=== PATIENT | female | born 1945 | race Caucasian/White ===

== ENCOUNTER 2024-12-11 13:54 | Outpatient (CLI) | payer MEDICARE, SELFPAY | END 2024-12-11 13:55 | disposition home or self-care (01) | PROVIDERS: PCP Family Medicine; Visit Provider Internal Medicine | DX: R53.1 Weakness (principal); R50.9 Fever, unspecified | CPT/HCPCS: A0425; A0427 ==

== ENCOUNTER 2024-12-11 14:45 | Inpatient (IN) | payer MEDICARE, SELFPAY ==
[2024-12-11] VITALS (8 sets, daily range): BP systolic 131–162; BP diastolic 68–95; PULSE 83–98; RESP 16–20; TEMP 36.8–38; O2SAT 90–97; BMI 23.4; BMI 18.8
--- OUTSIDE RECORDS SUMMARY | 2024-12-11 14:47 | XMS_ITS | Clinical Summary ---
Author Organization [facility] Address [address] [place] [id number] Care Team Providers Care Lath Hand Name Role Phone Erna Cohen MD Primary Care Provide r Allergies No known active allergies Medications nitrofurantoin macrocrystals/m onohydrate 100 mg capsuleIndicati ons:Complicated UTI (urinary tract infection) Take 1 Capsule (100 mg) by mouth two times daily for 7 days. 14 Capsule 12/08/2024 Active Active Problems Problem Noted Date Diagnosed Date Female bladder prolapse 01/14/2023 Uterine prolapse 05/23/2021 Mild hypercholesterolemia 05/23/2021 Encounters Date Type Department Care Team Description 12/11/2024 Nurse Triage [facility] [address] [place] [address] Erna Cohen MD Infection 12/09/2024 Telephone [facility] [address] [place] [address] Ivonne Yeung PA Results 12/08/2024 11:30 AM CDT Office Visit [facility] [address] [place] [address] Ivonne Yeung PA UTI 12/08/2024 Travel from Last 3 Months Social History Tobacco Use Types Packs/Day Years Used Date Smoking Tobacco: Never Smokeless Tobacco: Never Tobacco Cessation:Counseling Given: Yes Alcohol Use Standard Drinks/Week Comments Yes 0 (1 standard drink = 0.6 oz pur e alcohol) janette CHASE-2 Answer Date Recorded PHQ-2 TOTAL SCORE 0 01/13/2023 Social Connections Answer Date Recorded Do you often feel lonely or isolated from those around you? 0 02/08/2024 Financial Resource Strain Answer Date R ecorded Difficulty of Paying Living Expenses 3 02/08/2024 Difficulty of Paying Living Expenses Not on file 02/08/2024 Food Insecurity Answer Date Recorded Do you worry your food will run out before you are able to buy more? 1 02/08/2024 Transportation Needs Answer Date Record ed Does lack of transportation keep you from medica l appointments? 1 02/08/2024 Does lack of transportation keep you from work, meetings or getting things that you need? 1 02/08/2024 Housing Stability Answer Date Recorded What is your housing situation today? 1 02/08/2024 Utilities Answer Date Recorded Do you have trouble paying f or utilities (for example, heat, electricity, water, phone)? 1 02/08/2024 Comments No Sex and Gender Information Value Date Recorded Sex Assigned at Not on file Legal Sex Female 6:19 AM AUTHORIZATION COORDINATOR Gender Identity Not on file Sexual Orientation Not on file Obstetrics History Last Filed Vital Signs Vital Sign Reading Time Taken Comments Blood Pressure 125/82 12/08/2024 11:38 AM CDT Pulse 93 12/08/2024 11:38 AM CDT Temperature 36.7 C (98.1 F) 12/08/2024 11:38 AM CDT Respiratory Rate - - Oxygen Saturation 97% 12/08/2024 11:38 AM CDT Inhaled Oxygen Concentration - - Weight 50.1 kg (110 lb 8 oz) 12/08/2024 11:38 AM CDT Height 161.3 cm (5' 3.5) 01/13/2023 8:22 AM CDT Body Mass Index 19.27 01/13/2023 8:22 AM CDT Plan of Treatment Upcoming Encounters Date Type Department Care Team (Late st Contact Info) Description 12/20/2024 10:30 AM CDT Ancillary Procedure [facility] [address] [place] [address] 12/20/2024 11:20 AM CDT Office Visit [facility] [address] [place] [address] Erna Cohen MD [address] [place] [address] Health Maintenance Due Date Last Done Comments Tdap 1956 Hepatitis C screening for ag e 18-79 1964 Tetanus booster 1966 Pneumococcal series for age 50+ (1 of 1 - PCV) 1996 Zoster (shingles) series for age 50+ (1 of 2) 1996 RSV vaccine for adults or (1 - 1-dose 75+ series) 2021 BMI (ht and wt on same day) for age 18+ 01/14/2024 01/13/2023, 09/22/2019, 12/16/2018, Additional history exists Depression screening for age 12+ 01/14/2024 01/13/2023, 01/13/2023, 09/22/2019, Additional history exists Medicare Wellness for age 65+ 01/14/2024 01/13/2023, 09/22/2019 COVID-19 vaccine series ( - season) 2024 Influenza Vaccine (Season Ended) 2025 DEXA/DXA scan for age 65+ Completed 01/13/2023 Procedures Procedure Name Priority Date/Time Associated Diagnosis Comments COMP METABOLIC PANEL Routine 12/08/2024 12:15 PM CDT Abdominal pain, RUQ (right upper quadrant) CBC WITH AUTO DIFFERENTIAL Routine 12/08/2024 12:15 PM CDT Abdominal pain, RUQ (right upper quadrant) SEDIMENTATION RATE Routine 12/08/2024 12 :15 PM CDT Abdominal pain, RUQ (right upper quadrant) C-REACTIVE PROTEIN Routine 12/08/2024 12 :15 PM CDT Abdominal pain, RUQ (right upper quadrant) TRICHOMONAS, ROSA, AND BACTERIAL VAGINOSIS BY HUYEN Routine 12/08/2024 11:52 AM CDT Lower urinary tract symptoms (LUTS) URINALYSIS MACROSCOPIC - [facility] ONLY POC DIP ([facility]) Routine 12/08/2024 11:47 AM CDT Lower urinary tract symptoms (LUTS) URINALYSIS MICROSCOPIC Routine 11:46 AM CDT Lower urinary tract symptoms (LUTS) URINE CULTURE Routine 12/08/2024 11:46 AM CDT Lower urinary tract symptoms (LUTS) XR DXA BONE DENSITY 2 SITES AXIAL Routine 01/13/2023 2:09 PM CDT Menopause from Last 3 Months or Most Recently Relevant to Health Maintenance Results * SEDIMENTATION RATE (12/08/2024 12:15 PM CDT) SED RATE BY MODIFIED FABIANA 29 < OR = 30 mm/h [facility] Blood BLOOD SPECIMEN / Unknown 12/08/2024 12:15 PM CDT 12/08/2024 12:15 PM CDT Narrative [facility] - 12/09/2024 5:43 AM CDT FASTING:NO FASTING: NO us Ivonne HOLLINGSWORTH HEMATOLOGY Final Result [facility] [address] [place] [address], [facility] [address] [place] [address] * (ABNORMAL) C-REACTIVE PROTEIN (12/08/2024 12:15 PM CDT) C-REACTIVE PROTEIN 102.0(H) <8.0 mg/L [facility] Blood BLOOD SPECIMEN / Unknown 12/08/2024 12:15 PM CDT 12/08/2024 12:15 PM CDT Narrative [facility] - 12/09/2024 11:06 AM CDT FASTING:NO FASTING: NO us Ivonne Marlene Pendleton PA CHEMISTRY Final Result [facility] [address] [place] [address], [facility] [address] [place] [address] * (ABNORMAL) CBC AND DIFFERENTIAL (12/08/2024 12:15 PM CDT) [facility] WHITE BLOOD CELL COUNT 11.6(H) 3.8 - 10.8 Thousand/u L [facility] RED BLOOD CELL COUNT 3.84 3.80 - 5.10 Million/uL [facility] HEMOGLOBIN 12.9 11.7 - 15.5 g/dL [facility] HEMATOCRIT 38.2 35.0 - 45.0 % [facility] MCV 99.5 80.0 - 100.0 fL [facility] MCH 33.6(H) 27.0 - 33.0 pg [facility] MCHC 33.8 32.0 - 36.0 g/dL [facility] Comment: For adults, a slight decrease in the calculated MCHC value (in the range of 30 to 32 g/dL) is most likely not clinically significant; however, it should be interpreted with caution in correlation with other red cell parameters and the patient's clinical condition. RDW 12.8 11.0 - 15.0 % [facility] PLATELET COUNT 229 140 - 400 Thousand/u L [facility] MPV 9.9 7.5 - 12.5 fL [facility] ABSOLUTE NEUTROPHILS 9,709(H) 1,500 - 7,800 cells/uL [facility] ABSOLUTE LYMPHOCYTES 812(L) 850 - 3,900 cells/uL [facility] ABSOLUTE MONOCYTES 1,067(H) 200 - 950 cells/uL [facility] ABSOLUTE EOSINOPHILS 0(L) 15 - 500 cells/uL [facility] ABSOLUTE BASOPHILS 12 0 - 200 cells/uL [facility] NEUTROPHILS 83.7 % [facility] LYMPHOCYTES 7.0 % [facility] MONOCYTES 9.2 % [facility] EOSINOPHILS 0.0 % [facility] BASOPHILS 0.1 % [facility] Blood BLOOD SPECIMEN / Unknown 12/08/2024 12:15 PM CDT 12/08/2024 12:15 PM CDT Narrative [facility] - 12/09/2024 3:38 AM CDT FASTING:NO FASTING: NO Ivonne HOLLINGSWORTH HEMATOLOGY Final Result [employer] [facility] [address] [place] [address], [facility] [address] [place] [address] * (ABNORMAL) COMP METABOLIC PANEL (12/08/2024 12:15 PM CDT) Pathologist [facility] GLUCOSE 135 65 - 139 mg/dL [facility] Comment: Non-fasting reference interval UREA NITROGEN (BUN) 11 7 - 25 mg/dL [facility] CREATININE 0.71 0.60 - 1.00 mg/dL [facility] EGFR 87 > OR = 60 mL/min/1. 73m2 [facility] BUN/CREATININE RATIO SEE NOTE: 6 - 22 (calc) [facility] Comment: Not Reported: BUN and Creatinine are within reference range. SODIUM 136 135 - 146 mmol/L [facility] POTASSIUM 4.3 3.5 - 5.3 mmol/L [facility] CHLORIDE 97(L) 98 - 110 mmol/L [facility] CARBON DIOXIDE 29 20 - 32 mmol/L [facility] CALCIUM 9.4 8.6 - 10.4 mg/dL [facility] PROTEIN, TOTAL 6.8 6.1 - 8.1 g/dL [facility] ALBUMIN 4.4 3.6 - 5.1 g/dL [facility] GLOBULIN 2.4 1.9 - 3.7 g/dL (calc) [facility] ALBUMIN/GLOBULIN RATIO 1.8 1.0 - 2.5 (calc) [facility] BILIRUBIN, TOTAL 0.9 0.2 - 1.2 mg/dL [facility] ALKALINE PHOSPHATASE 67 37 - 153 U/L [facility] AST 24 10 - 35 U/L [facility] ALT 16 6 - 29 U/L [facility] Blood BLOOD SPECIMEN / Unknown 12/08/2024 12:15 PM CDT 12/08/2024 12:15 PM CDT Narrative [facility] - 12/09/2024 4:06 AM CDT FASTING:NO FASTING: NO us Ivonne HOLLINGSWORTH CHEMISTRY Final Result [employer] [facility] [address] [place] [address], [address] [address] * TRICHOMONAS, ROSA, AND BACTERIAL VAGINOSIS BY HUYEN (12/08/2024 11:52 AM CDT) ROSA SPECIES Negative Negative 5 2:04 PM CDT [facility] ROSA GLABRATA Negative Negative 12/09/2024 2:04 PM CDT [facility] TRICHOMONAS VVA Negative Negative 2:04 PM CDT [facility] BACTERIAL VAGINOSIS Negative Negative 12/09/2024 2:04 PM CDT [facility] Other VAGINAL SWAB / Unknown Non-Blood / Unknown 12/08/2024 11:52 AM CDT 12/08/2024 12:50 PM CDT Ivonne HOLLINGSWORTH MICROBIOLOGY Final Result [facility] [address] [place] [address], * (ABNORMAL) POCT Urinalysis Dipstick Only [[id number]] (12/08/2024 11:47 AM CDT) PH 6.0 5.0 - 8.0 [facility] SPECIFIC GRAVITY 1.025 1.001 - 1.035 [facility] GLUCOSE NEGATIVE NEGATIVE [facility] BILIRUBIN NEGATIVE NEGATIVE [facility] KETONES TRACE(A) NEGATIVE [facility] OCCULT BLOOD 3+(A) NEGATIVE [facility] PROTEIN 3+(A) NEGATIVE [facility] NITRITE POSITIVE(A) NEGATIVE [facility] LEUKOCYTE ESTERASE 3+(A) NEGATIVE [facility] Urine URINE SPECIMEN / Unknown 12/08/2024 11:47 AM CDT 12/08/2024 11:47 AM CDT Ivonne HOLLINGSWORTH URINE Final Result Performing Organization Address [facility]/ZIP Co de Phone Number [facility] [address] [place] [address], [facility] [address] [place] [address] * (ABNORMAL) URINALYSIS MICROSCOPIC [66221.1] - routine (12/08/2024 11:46 AM CDT) RBC >100(A) 0-2, None Seen /HPF 12/08/2024 11:30 PM CDT [facility] WBC >100(A) 0-2, 3-5, None Seen /HPF 12/08/2024 11:30 PM CDT [facility] BACTERIA Many(A) None Seen, Rare, Few Bacteria/ HPF 12/08/2024 11:30 PM CDT [facility] EPITHELIAL CELLS None Seen None Seen, Few Epi/HPF 12/08/2024 11:30 PM CDT [facility] HYALINE CASTS 0-2 0-2, 3-5 /LPF 12/08/2024 11:30 PM CDT [facility] Urine URINE SPECIMEN / Unknown Non-Blood / Unknown 12/08/2024 11:46 AM CDT 12/08/2024 11:46 AM CDT Ivonne HOLLINGSWORTH URINE Final Result [facility] [address] [place] [address], [place] * (ABNORMAL) URINE CULTURE [20781.2] (12/08/2024 11:46 AM CDT) CULTURE RESULT(A) 12/11/2024 7:15 AM CDT [facility] CULTURE >100,000 CFU/mL Escherichia coli 12/11/2024 7:15 AM CDT [facility] Urine URINE SPECIMEN / Unknown Non-Blood / Unknown 12/08/2024 11:46 AM CDT 12/08/2024 11:46 AM CDT Narrative Organism Antibiotic Method Susceptibility Escherichia coli TRIMETHOPRIM/SULF >=16/304: R Escherichia coli AMPICILLIN >=32: R Escherichia coli CEFAZOLIN >=32: R Escherichia coli CEFAZOLIN-UC >=32: R Comment:Cefazolin-UC interpretations are for therapy of uncomplicated UTIs due to E.coli, K.pneumoniae, or P.mirablis. Cefazolin breakpoint is used as a surrogate to predict results for the oral agents - cefdinir, cefuroxime, and cephalexin, when used for therapy of uncomplicated UTIs due to E coli, K, pneumoniae, and P. mirabilis. The FDA recommends cefadroxil susceptibility can be deduced from cefazolin. Escherichia coli GENTAMICIN <=1: S Escherichia coli CEFTRIAXONE 32: R Escherichia coli CEFTAZIDIME 8: I Escherichia coli LEVOFLOXACIN <=0.12: S Escherichia coli CIPROFLOXACIN <=0.06: S Escherichia coli PIPERACILLIN/TAZO <=4: S Escherichia coli AMPICILLIN/SULBACTAM >=32: R Escherichia coli CEFEPIME <=0.12: S Escherichia coli MEROPENEM <=0.25: S Escherichia coli NITROFURANTOIN 32: S Ivonne HOLLINGSWORTH MICROBIOLOGY Final Result [facility] [address] [place] [address], * (ABNORMAL) XR DXA BONE DENSITY 2 SITES AXIAL [23084.1] (01/13/2023 2:09 PM CDT) Anatomical Region Laterality Modality Spine, HIPS, HIPL, HIPR Other Impressions 01/23/2023 4:45 PM CDT Osteopenia. RECOMMENDATIONS: The National Osteoporosis Foundation recommends pharmacologic treatment for patients with T-scores of -2.5 or less, patients with prior history of fragility fractures, or patients with 10-year probability of greater than 3% at hips or greater than 20% of suffering major osteoporotic fractures. Recommend continued optimization of calcium and vitamin D intake through dietary means and/or supplementation and regular exercise. Repeat scan recommended in 3-5 years. Naomy Swanson PA-C [facility] 01/23/2023 Narrative 01/23/2023 4:45 PM CDT For Patients: Results are automatically released to your [facility] (PhoneTell) account once available, in compliance with federal regulations. This means that you may see your results before your provider has had a chance to review them. Please allow 2-3 business days for your provider to comment on the results. XR DXA Bone Mineral Density (BMD) EXAM LOCATION: [address] [address] PATIENT NAME: Shane Cat DATE OF : 1945 EXAM DATE: 01/13/2023 REQUESTING PROVIDER: Erna Cohen MD GENDER AT : female HEIGHT: 5' 3.5 (01/13/2023) WEIGHT: 111 lb 9.6 oz (01/13/2023) MENOPAUSAL STATUS: Postmenopausal RACE/ETHNICITY: White RISK FACTORS: Weight < 127 lbs. and White Race CURRENT MEDICATION FOR BONE LOSS: NONE INDICATION: Initial scan for screening and Post-Menopause COMPARISON DATE(S): None DXA scans are compared to prior studies for a patient only when the two (or more) studies were performed on the same scanner. It is not possible to compare data generated on one scanner to data from another because there are not standards in DXA equipment. This applies even if the two scanners are made by the same gas worker. PROCEDURE: Dual-energy x-ray absorptiometry performed with routine technique. Reporting is completed in the form of a T-score. The T-score represents the standard deviation from peak bone mass based on young healthy adult. A Z-score is used for diagnosis in premenopausal women, and for men under the age of 50. FINDINGS: RESULT LUMBAR SPINE L1 - L2 BMD: 1.138 g/cm2 T-Score: - 0.3 Z-Score: + 2.0 Change from prior: None RESULTS FEMUR Left femoral neck BMD: 0.844 g/cm2 T-Score: - 1.4 Z-Score: + 0.9 Change from prior: None Right femoral neck BMD: 0.779 g/cm2 T-Score: - 1.9 Z-Score: + 0.4 Change from prior: None Left hip BMD: 0.891 g/cm2 T-Score: - 0.9 Z-Score: + 1.2 Change from prior: None Right hip BMD: 0.867 g/cm2 T-Score: - 1.1 Z-Score: + 1.0 Change from prior: None WHO criteria: Normal: T-score at or above -1 SD Osteopenia: T-score between -1.1 and -2.4 SD Osteoporosis: T-score at or below -2.5 SD FRAX RISK CALCULATION (USED FOR OSTEOPENIA ONLY): 10-year probability of major osteoporotic fracture: 11.2%. 10-year probability of hip fracture: 3.0%. Erna Cohen MD DEXA Final Result from Last 3 Months or Most Recently Relevant to Health Maintenance Insurance [facility] MEDICARE ADVANTAGE MR Care Teams Lath Hand Relationship Specialty Start Date End Date Erna Cohen MD [address] [place] [address] PCP - General 12/12/05
[2024-12-11 15:02] LABS: Appearance Urine Slightly Cloudy (Clear); Bilirubin Urine Negative (Negative); Blood Urine 2+ (Negative); Color Urine Dark yellow (Yellow); Glucose Urine Negative (Negative); Ketones Urine 1+ (Negative); Leukocyte Esterase Urine 3+ (Negative); Nitrite Urine Positive (Negative); Protein Urine 2+ (Negative); Urobilinogen Urine 0.2 (0.2-1.0); pH Urine 6.5 (5.0-8.5)
[2024-12-11 15:15] LABS: Squamous Epithelial Cell Urine Few (None-Few); WBC Urine 50-100 (0-5)
[2024-12-11 15:16] LABS: Bacteria Urine Many
--- NOTE | 2024-12-11 16:06 | CRLHL7_ITS ---
For Patients: As a result of the 21st Century Cures Act, medical imaging exams and procedure reports are released immediately into your electronic medical record. You may view this report before your referring provider. If you have questions, please contact your health care provider. INDICATION: Right lower quadrant pain, fever, UTI. COMPARISON: None. TECHNIQUE: CT of the abdomen and pelvis with intravenous contrast. Multiplanar axial, coronal, and sagittal reformats were reconstructed. Contrast: 71 mL Isovue 370. FINDINGS: Lung bases: Mild basilar reticulation could be scarring or atelectasis. Liver: There is a 2.4 centimeter liver cyst. There are scattered subcentimeter subcapsular lesions. See series 2 image 26, 29, and 51. Gallbladder and bile ducts: The gallbladder fundus is mildly thickened and hyperenhancing. There is some focal low density in the wall. Question fundal adenomyomatosis. No bile duct dilation. Pancreas: Normal. Spleen: Normal. Adrenal glands: Normal. Kidneys: Normal left renal size and position. Normal left renal parenchymal enhancement. There is a 9 millimeter left renal cyst. No left renal mass. There is left pelviectasis and dilatation of the peripheral and central calices. The anterior to posterior renal pelvic dimension is 3.1 centimeters. The left ureter is diffusely dilated. The left urothelium appears normal on CT. Slightly low-lying transverse right kidney. Asymmetric right perinephric stranding. Focal blurring of the corticomedullary differentiation in the right mid kidney laterally. See series 2, image 63. There is moderate to severe right pelvicaliectasis with an anterior-posterior renal pelvis dimension of 4 centimeters. The right ureter is diffusely dilated. There is right urothelial thickening and enhancement. Urinary bladder: Urinary bladder prolapse. The urinary bladder is not fully visualized within the field of view. The ureterovesicular junctions are not visualized within the field of view. The bladder is mildly thickened and hyperenhancing. There is some adjacent inflammatory stranding. Pelvis: Severe pelvic prolapse. Vessels: Mild atherosclerosis. No aortic aneurysm. Mesenteric arteries and veins are patent. Bowel: No dilated or inflamed bowel. Normal appendix. Moderate stool burden. Lymph nodes: No adenopathy. Peritoneum: No ascites or free air. Abdominal wall: No bowel containing hernia. Bones: Multilevel disc and facet degeneration. No acute or healing fractures. No focal worrisome bone lesions. IMPRESSION: 1. Cystitis of the urinary bladder and right upper urinary tract infection. Area of focal pyelonephritis in the right mid kidney. No renal abscess or perinephric collection. 2. There is pelvic prolapse with prolapse of the bladder. There is associated bilateral urinary tract dilatation/obstruction. 3. Question focal adenomyomatosis at the gallbladder fundus. Recommend nonemergent ultrasound. 4. There are a few indeterminate subcapsular liver lesions that measure less than 1 centimeter. If further imaging is clinically necessary, MR abdomen without and with IV contrast could be considered. Please note that all CT scans at this facility use dose modulation, iterative reconstruction, and/or weight-based dosing when appropriate to reduce radiation dose to as low as reasonably achievable. Dictated by Nan Miller MD @ 12/11/2024 5:16:18 PM (Electronically Signed)
--- NOTE | 2024-12-11 16:20 | ED_ITS ---
HPI - General Adult General Date Seen: 12/11/24 Chief complaint: Fever Stated complaint: gillian Edwards Time Seen by Provider: 12/11/24 14:59 History of Present Illness HPI narrative: Patient is a 79-year-old woman, generally pretty healthy although she has a history of uterine prolapse. She says that last , 4 days ago, she woke up with dysuria and blood in her urine. She was seen at the [facility], day, and says that urinalysis was abnormal. A culture was obtained but she has not yet heard the results of that. She was started on Macrobid and she has been taking that twice daily since . She presents the ER on Thursday due to feeling weak and shaky today. She has had some chills, some sweats. Has not documented a fever at home. She says the dysuria and hematuria have improved. She has been having some right upper quadrant pain for it sounds like a week and half for so, and says that they did do liver labs in clinic that were normal. There is a right upper quadrant ultrasound scheduled for about a week from now. She has no history of kidney stones. She does still have her gallbladder. She has not had vomiting or diarrhea. She notes that her uterus is always prolapsed, it has been feeling more sensitive than usual. She has not had any respiratory symptoms. She does not smoke or drink. Related Data Home Medications ?Medication ?Instructions ?Recorded ?Confirmed nitrofurantoin 1 cap PO BID 12/11/24 12/11/24 monohydrate/macrocrystals 100 mg capsule Allergies Allergy/AdvReac Type Severity Reaction Status Date / Time No Known Drug Allergies Allergy Verified 12/11/24 17:50 Review of Systems Status of ROS: Reports: 10 or more systems reviewed and unremarkable except as noted in History and below Exam Narrative: Exam Narrative: Vital signs reviewed In general, alert, nontoxic woman, breathing easily. Head: Normocephalic, atraumatic. Eyes: Sclera clear. Pupils equal and reactive. ENT: Mucous membranes moist. Neck: Supple without adenopathy. Heart: Regular rate and rhythm without murmur. Lungs: Clear. No increased work of breathing, crackles or wheezes. No CVA tenderness. Abdomen: Soft, nontender to palpation. Negative Timmons sign. Pelvic: She has a prolapsed uterus which is reducible, tissue is pink and well perfused, no significant tenderness to palpation. Extremities: Well perfused, pulses intact. No significant edema. Neurologic: Alert, conversant. Speech fluent, face symmetric. Moves all extremities equally. Skin: Warm, dry well perfused. Affect: Normal. Const: Vital Signs, click to edit/add: Vital Signs - 24 hr 12/11/24 15:04 12/11/24 15:30 12/11/24 16:51 Temperature 100.4 F H Pulse Rate 86 Pulse Rate [Pulse Oximeter] 91 Respiratory Rate 16 Blood Pressure 162/95 H Blood Pressure [Ri ght Upper Arm] 152/81 H Pulse Oximetry 97 94 Oxygen Delivery Me thod Room Air 12/11/24 17:00 Temperature Pulse Rate 93 Pulse Rate [Pulse Oximeter] Respiratory Rate Blood Pressure Blood Pressure [Ri ght Upper Arm] Pulse Oximetry 97 Oxygen Delivery Me thod Course Course ED Course: A urinalysis was obtained prior to my seeing the patient. This is notable for positive nitrites, 2-5 red cells and 50-100 white blood cells. Will check to see if the [facility] culture results are available. In the meantime, an IV is placed, will give a L normal saline, at this time, she does meet sepsis criteria with fever and mild tachycardia. Blood cultures, CBC, lactate, procalcitonin and other labs are pending. Wound cultures have been drawn, will initiate antibiotics. Given that the source of this infection seems almost certainly to be urinary, we can most likely limit our antibiotics Rocephin. I am going to do imaging of her abdomen in the form of CT scan to see if she has a kidney stone, will check LFTs although I think it is relatively unlikely that this is biliary in origin. Labs are reviewed and are generally normal. She is mildly anemic with a hemo globin of 11.3, her white count is normal, very minimal left shift with 75% neutrophils. Sodium is 131, creatinine normal. LFTs are unremarkable. CRP is elevated at 14.2 but lactate and procalcitonin are normal. CT scan by my review is notable for significant obstructive uropathy and prolapse of pelvic organs. Liver cyst is seen as well. Final radiology report is also reviewed, results reviewed with the family. An ultrasound of the gallbladder was recommended, she actually has this scheduled already for next week and I have discussed with them they should keep that appointment. I was able to see the culture results from [facility], she grew out an E coli which is actually resistant to Rocephin but sensitive to cefepime so I gave her 2 g of IV cefepime after cultures were obtained. She does meet sepsis criteria with her pulse and temperature, and will be admitted to the hospital for IV antibiotics. I discussed her care with Dr. Andrade on-call for Ob Gyne, they will consult tomorrow for pessary placement and conversation around repair for her pelvic organ prolapse. Tee catheter was placed in the meantime in the ER. Aside from mild tachycardia, she has remained hemodynamically stable in the ER, does not have any other complaints at this time. Care discussed with hospitalist and accepted to their service. Vital Signs Vital signs: Initial Vital Signs Temperature 100.4 F H 12/11/24 15:04 Temperature Source Temporal Artery Scan 12/11/24 15:04 Pulse Rate 91 12/11/24 15:04 Respiratory Rate 16 12/11/24 15:04 Blood Pressure 152/81 H 12/11/24 15:04 Blood Pressure Mean 104 12/11/24 15:04 Pulse Oximetry 97 12/11/24 15:04 Oxygen Delivery Method Room Air 12/11/24 15:04 Vital Signs Temperature 100.4 F H 12/11/24 15:04 Pulse Rate 91 12/11/24 15:04 Respiratory Rate 16 12/11/24 15:04 Blood Pressure 152/81 H 12/11/24 15:04 Pulse Oximetry 97 12/11/24 15:04 Oxygen Delivery Method Room Air 12/11/24 15:04 Temperature 100.4 F H 12/11/24 15:04 Pulse Rate 93 12/11/24 17:00 Respiratory Rate 16 12/11/24 15:04 Blood Pressure 162/95 H 12/11/24 16:51 Pulse Oximetry 97 12/11/24 17:00 Oxygen Delivery Method Room Air 12/11/24 15:04 Medications Administered Medications: Discontinued Medications Generic Name Dose Route Start Last Admin Trade Name Freq PRN Reason Stop Dose Admin Sodium Chloride 1,000 mls @ 1,000 mls/hr 12/11/24 16:15 12/11/24 16:58 0.9 % Sodium Chloride 1000 Ml IV 12/11/24 17:14 1,000 mls/hr .Q1H MARTA Administration Cefepime HCl 2 gm/ Sodium 100 mls @ 200 mls/hr 12/11/24 16:40 12/11/24 17:43 Chloride IVPB 12/11/24 16:41 Infused ONCE ONE Infusion Medical Decision Making Lab Data Labs: Lab Results 12/11/24 12/11/24 12/11/24 Range/Units 14:56 16:16 16:29 WBC 6.64 (4.50-11.00) K/uL RBC 3.37 L (4.00-5.20) m/uL Hgb 11.3 L (12.0-16.0) gm/dL Hct 33.9 (33.0-51.0) % MCV 101 H (80-100) fL MCH 34 (26-34) pg MCHC 33 (32-36) gm/dL RDW Coeff of Richard 13.0 (11.5-15.5) % Plt Count 191 (140-440) K/uL Neut % (Auto) 75.2 H (42.0-72.0) % Lymph % (Auto) 9.5 L (20-44) % [place] % (Auto) 14.0 H (0.0-11.0) % Eos % (Auto) 0.0 (0.0-7.0) % Baso % (Auto) 0.2 (0.0-3.0) % Neut # (Auto) 5.00 (1.7-7.0) K/uL Lymph # (Auto) 0.60 L (0.90-2.90) K/uL [place] # (Auto) 0.90 (0.00-0.90) K/UL Eos # (Auto) 0.00 (0.00-0.50) K/uL Baso # (Auto) 0.01 (0.00-0.30) K/uL Abs Immat Gran (auto) 0.07 (0.00-0.30) K/uL Imm/Tot Granulo (auto) 1.1 % Sodium 131 L (135-149) mmol/L Potassium 4.3 (3.6-5.1) mmol/L Chloride 96 (96-114) mmol/L Carbon Dioxide 27 (20-32) mmol/L Anion Gap 8 (7-15) mEq/L BUN 14 (7-30) mg/dL Creatinine 0.7 (0.5-1.5) mg/dL Estimated Creat Clear 43.40 Estimated GFR 88 ml/min Glucose 117 H (60-115) mg/dL Lactate 0.8 (0.5-1.9) mmol/L Calcium 9.0 (8.4-10.6) mg/dL Total Bilirubin 0.5 (0.1-1.5) mg/dL Direct Bilirubin 0.2 (0.0-0.5) mg/dL AST 35 (12-35) U/L ALT 23 (4-35) U/L Alkaline Phosphatase 80 (40-150) U/L C-Reactive Protein 14.2 H (0.5-1.0) mg/dL Total Protein 6.9 (6.0-8.3) g/dL Albumin 4.0 (3.3-5.0) g/dL Procalcitonin 0.31 (<0.50) ng/mL Urine Color Dark yellow (Yellow) Urine Appearance Slightly Cloudy A (Clear) Urine pH 6.5 (5.0-8.5) Ur Specific [place] 1.010 (1.000-1.030) Urine Protein 2+ A (Negative) Urine Glucose (UA) Negative (Negative) Urine Ketones 1+ A (Negative) Urine Blood 2+ A (Negative) Urine Nitrite Positive A (Negative) Urine Bilirubin Negative (Negative) Urine Urobilinogen 0.2 (0.2-1.0) Ur Leukocyte Esterase 3+ A (Negative) Urine RBC 2-5 A (0-2) Urine WBC 50-100 A (0-5) Ur Squamous Epith Cells Few (None-Few) Urine Bacteria Many A (None) POC Creatinine 0.8 (0.6-1.3) mg/dl Discharge Plan Discharge Clinical Impression: Pyelonephritis, Sepsis, Obstructive uropathy, Female bladder prolapse Patient Disposition: Admitted As Observation
--- OUTSIDE RECORDS SUMMARY | 2024-12-11 16:23 | XMS_ITS | Clinical Summary ---
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 Gender Identity Not on file Sexual Orientation [...] Description 12/20/2024 10:30 AM CDT Ancillary Procedure [facility] [address] [place] [place] [address] 12/20/2024 11:20 AM CDT Office Visit [facility] [address] [facility] [address] Erna Cohen MD [address] [place] [address] Health Maintenance Due Date Last Done Comments [...] us Ivonne HOLLINGSWORTH HEMATOLOGY Final Result [facility] [address] [place] [address], [facility] [address] [place] [address] * (ABNORMAL) C-REACTIVE PROTEIN (12/08/2024 12:15 PM CDT) C-REACTIVE PROTEIN 102.0(H) <8.0 mg/L [facility] Blood BLOOD SPECIMEN / Unknown 12/08/2024 12:15 PM CDT 12/08/2024 12:15 PM CDT Narrative [facility] - 12/09/2024 11:06 AM CDT FASTING:NO FASTING: NO us Ivonne Marlene Macon PA CHEMISTRY Final Result [facility] [address] [place] [address], [facility] [address] [place] [address] * (ABNORMAL) CBC AND DIFFERENTIAL (12/08/2024 12:15 PM CDT) [facility] WHITE BLOOD CELL COUNT 11.6(H) 3.8 [...] FASTING: NO Ivonne HOLLINGSWORTH HEMATOLOGY Final Result [facility] [address] [place] [address], [facility] [address] [place] [address] * (ABNORMAL) COMP METABOLIC PANEL (12/08/2024 12:15 PM CDT) Pathologist [facility] GLUCOSE 135 65 - 139 mg/dL [facility] [...] NO us Ivonne HOLLINGSWORTH CHEMISTRY Final Result [facility] [address] [place] [address], [facility] [address] * TRICHOMONAS, ROSA, AND BACTERIAL VAGINOSIS BY HUYEN (12/08/2024 11:52 AM CDT) ROSA SPECIES Negative Negative 5 2:04 PM CDT [facility] ROSA GLABRATA Negative Negative 12/09/2024 2:04 PM CDT [facility] TRICHOMONAS VVA Negative Negative 2:04 PM CDT [facility] BACTERIAL VAGINOSIS Negative Negative 12/09/2024 2:04 PM CDT [facility] Other VAGINAL SWAB / Unknown Non-Blood / Unknown 12/08/2024 11:52 AM CDT 12/08/2024 12:50 PM CDT Ivonne HOLLINGSWORTH MICROBIOLOGY Final Result [facility] [address] [place] [address], * (ABNORMAL) POCT Urinalysis Dipstick Only [[id number]] (12/08/2024 11:47 AM CDT) PH 6.0 5.0 - 8.0 [facility] SPECIFIC GRAVITY 1.025 1.001 - 1.035 [facility] GLUCOSE NEGATIVE NEGATIVE [facility] BILIRUBIN NEGATIVE NEGATIVE [facility] KETONES TRACE(A) NEGATIVE [facility] OCCULT BLOOD 3+(A) NEGATIVE [facility] PROTEIN 3+(A) NEGATIVE [facility] NITRITE POSITIVE(A) NEGATIVE [facility] LEUKOCYTE ESTERASE 3+(A) NEGATIVE [facility] Urine URINE SPECIMEN / Unknown 12/08/2024 11:47 AM CDT 12/08/2024 11:47 AM CDT Ivonne HOLLINGSWORTH URINE Final Result Performing Organization Address [facility]/ZIP Co de Phone Number [facility] [address] [place] [address], [facility] [address] [place] [address] * (ABNORMAL) URINALYSIS MICROSCOPIC [27932.1] - routine (12/08/2024 11:46 AM CDT) RBC >100(A) 0-2, None Seen /HPF 12/08/2024 11:30 PM CDT [facility] WBC >100(A) 0-2, 3-5, None Seen /HPF 12/08/2024 11:30 PM CDT [facility] BACTERIA Many(A) None Seen, Rare, Few Bacteria/ HPF 12/08/2024 11:30 PM CDT [facility] EPITHELIAL CELLS None Seen None Seen, Few Epi/HPF 12/08/2024 11:30 PM CDT [facility] HYALINE CASTS 0-2 0-2, 3-5 /LPF 12/08/2024 11:30 PM CDT [facility] Urine URINE SPECIMEN / Unknown Non-Blood / Unknown 12/08/2024 11:46 AM CDT 12/08/2024 11:46 AM CDT Ivonne HOLLINGSWORTH URINE Final Result [facility] [address] [place] [address], [place] * (ABNORMAL) URINE CULTURE [33410.2] (12/08/2024 11:46 AM CDT) CULTURE RESULT(A) 12/11/2024 7:15 AM CDT [facility] CULTURE >100,000 CFU/mL Escherichia coli 12/11/2024 7:15 AM CDT [facility] Urine URINE SPECIMEN / Unknown Non-Blood [...] 32: S Ivonne HOLLINGSWORTH MICROBIOLOGY Final Result [facility] [address] [place] [address], * (ABNORMAL) XR DXA BONE DENSITY 2 SITES AXIAL [59925.1] (01/13/2023 2:09 PM CDT) Anatomical Region Laterality [...] recommended in 3-5 years. Naomy Swanson PA-C [facility] 01/23/2023 Narrative 01/23/2023 4:45 PM CDT For Patients: Results are automatically released to your [facility] ([id number] account once available, in compliance with federal regulations. This means that you may see your results before your provider has had a chance to review them. Please allow 2-3 business days for your provider to comment on the results. XR DXA Bone Mineral Density (BMD) EXAM LOCATION: [address] [address] PATIENT NAME: Shane Cat DATE OF : [...] two scanners are made by the same rim fire charger operator. PROCEDURE: Dual-energy x-ray absorptiometry performed with routine [...] Most Recently Relevant to Health Maintenance Insurance [facility] MEDICARE ADVANTAGE MR Care Teams Pattern Hanger Relationship Specialty Start Date End Date Erna Cohen MD [address] [place] [address] PCP - General 12/12/05
[2024-12-11 16:28] LABS: Creatinine, Point-of-Care* 0.8 mg/dl (0.6-1.3)
[2024-12-11 16:34] LABS: Lactate Sepsis w/Reflex* 0.8 mmol/L (0.5-1.9)
[2024-12-11 16:37] LABS: Basophils Absolute Auto 0.01 K/uL (0.00-0.30); Basophils Percent Auto 0.2 % (0.0-3.0); Hematocrit 33.9 % (33.0-51.0); Hemoglobin* 11.3 gm/dL (12.0-16.0); Immature Granulocytes Abs Auto 0.07 K/uL (0.00-0.30); Immature Granulocytes Pct Auto 1.1 %; Lymphocytes Percent Auto 9.5 % (20-44); Mean Corpuscular HGB Conc 33 gm/dL (32-36); Mean Corpuscular Hemoglobin 34 pg (26-34); Mean Corpuscular Volume 101 fL (80-100); Neutrophils Percent Auto 75.2 % (42.0-72.0); Platelet Count* 191 K/uL (140-440); Red Blood Count 3.37 m/uL (4.00-5.20); White Blood Count* 6.64 K/uL (4.50-11.00)
[2024-12-11 16:41] LABS: Slide Review Reflex No
[2024-12-11 16:50] LABS: Chloride* 96 mmol/L (96-114)
[2024-12-11 16:51] LABS: Potassium* 4.3 mmol/L (3.6-5.1); Sodium* 131 mmol/L (135-149)
[2024-12-11 16:53] LABS: Blood Urea Nitrogen* 14 mg/dL (7-30); Creatinine* 0.7 mg/dL (0.5-1.5); Estimated Glomerular Filt Rate 88 ml/min
[2024-12-11 16:54] LABS: Alanine Aminotransferase* 23 U/L (4-35); Alkaline Phosphatase* 80 U/L (40-150); Anion Gap 8 mEq/L (7-15); Aspartate Amino Transferase* 35 U/L (12-35); Bilirubin Direct* 0.2 mg/dL (0.0-0.5); Bilirubin Total* 0.5 mg/dL (0.1-1.5); Carbon Dioxide* 27 mmol/L (20-32); Glucose* 117 mg/dL (60-115); Total Protein* 6.9 g/dL (6.0-8.3)
[2024-12-11] MEDS: CEFEPIME HCL 2 GM in 0.9 % SODIUM CHLORIDE Mini-bag 100 ML IVPB (16:58)
[2024-12-11] MEDS: 0.9 % SODIUM CHLORIDE 1000 ml 1,000 ML IV (16:58)
[2024-12-11 17:10] LABS: C Reactive Protein* 14.2 mg/dL (0.5-1.0); Procalcitonin* 0.31 ng/mL (<0.50)
--- NOTE | 2024-12-11 17:54 | P.IMHP_ITS ---
Assessment and Plan Assessment and plan (1) Sepsis: Problem comment: Fever 100.4?, HR >90, urinary source No leukocytosis, lactate 0.8, CRP 14.2 Zosyn IVF Fever management BC x2 and UC pending Status: Acute (2) Pyelonephritis: Problem comment: CT shows cystitis of the urinary bladder and right upper urinary tract infection. Area of focal pyelonephritis in the right mid kidney. No renal abscess or perinephric collection UC from outside facility, 12/08 growing >100,000 E Coli, sensitive to nitrofurantoin, cefepime, zosyn Failed outpatient therapy with nitrofurantoin Received cefepime in ED Start Zosyn, awaiting BC x 2 and repeat UC Status: Acute (3) Obstructive uropathy: Problem comment: CT shows associated bilateral urinary tract dilatation/obstruction Catheter in place Status: Acute (4) Female bladder prolapse: Problem comment: CT shows pelvic prolapse with prolapse of the bladder. There is associated bilateral urinary tract dilatation/obstruction Chronic, patient has tried pessaries in the past but found them to be too uncomfortable ED provider discussed with DOCUMENT CONTROL ASSISTANT. Consult for morning Status: Chronic (5) Hyponatremia: Problem comment: Mild, sodium 131, recheck in a.m. following IVF Status: Acute (6) Abnormal findings on diagnostic imaging of gallbladder: Problem comment: Incidental finding, CT questions focal adenomyomatosis at the gallbladder fundus Recommend outpatient follow-up with PCP for nonemergent ultrasound Status: Acute (7) Liver lesion: Problem comment: Incidental finding, CT shows a few indeterminate subcapsular liver lesions that measure less than 1 centimeter LFTs are unremarkable Outpatient follow-up with PCP for consideration MR abdomen if necessary Status: Acute Total Time Spent Total Time Spent: Today I spent 75 minutes seeing the patient, reviewing Expanse and EPIC notes/diagnostics, discussing the care plan with our care time that includes social work, PT/OT, pharmacy, RT, shelter and documenting my impressions and plan in the medical record. Hospitalist- H&P: HPI History of Present Illness Date Seen: 12/11/24 Chief complaint: gillian Edwards Narrative: Shane Cat is a 79 year old female past medical history significant for mild hypercholesterolemia, uterine/bladder prolapse is admitted to the medical floor from the ED for further management sepsis in setting of pyelonephritis. Patient is seen with spouse and daughters at bedside. Reports not feeling well for several days. Has had suprapubic discomfort as well as flank/rib cage pain. Increased urination and frequency. Chills without recorded fever at home. Temp in the ED is 100.4? today. Denies headache or lightheadedness specifically but has felt ?off.? Reports falling this morning when walking from the bedroom to the bathroom. Think she struck a countertop with her arm but did not hit her head and did not lose consciousness. Currently denies any pain of the extremity where she hit it does have a Band-Aid over the area. Denies chest pain or shortness of breath. Denies nausea or vomiting but has had a decrease in her appetite with decreased oral intake. Denies diarrhea. Has not had her routine bowel movements. Patient was seen in the [facility] on 12/08/2024. She was started on nitrofurantoin for suspected UTI. Urine culture grew out > 100,000 E coli with sensitivities to nitrofurantoin. Despite this, patient has not had any improvement, and is feeling worse. Nonsmoker. Drinks 1 glass of wine daily. Wishes to be full code. PCP is Dr. Cohen. Review of Systems Narrative: REVIEW OF SYSTEMS: Complete review of systems performed and negative unless otherwise stated in HPI or below. Meds Home Medications and Allergies Home Medications ?Medication ?Instructions ?Recorded ?Confirmed ?Type nitrofurantoin 1 cap PO BID 12/11/24 12/11/24 History monohydrate/macrocrystals 100 mg capsule Home Medication Comments: No prescription medications. Takes OTC supplements. Allergies Allergy/AdvReac Type Severity Reaction Status Date / Time No Known Drug Allergies Allergy Verified 12/11/24 17:50 Exam Narrative: Exam Narrative: PHYSICAL EXAM General: Pleasant, conversant, NAD HEENT: Normocephalic, atraumatic, sclera white, EOMI, oral mucosa moist Cardiovascular: RRR, S1S2. No pitting edema Pulmonary: CTA bilaterally without rhonchi, rales, expiratory wheezes. No dyspnea on room air Abdominal: Soft, nondistended, NTTP, no guarding Neurological: Alert, answering questions appropriately, cranial nerves intact, no focal findings Extremities: No gross joint deformity or swelling. AROMI. Neurovascularly intact Skin: Warm, dry. Const: Vital Signs, click to edit/add: Vital Signs - 24 hr 12/11/24 15:04 12/11/24 15:30 12/11/24 16:51 Temperature 100.4 F H Pulse Rate 86 Pulse Rate [Pulse Oximeter] 91 Respiratory Rate 16 Blood Pressure 162/95 H Blood Pressure [Ri ght Upper Arm] 152/81 H Pulse Oximetry 97 94 Oxygen Delivery Il thod Room Air 12/11/24 17:00 Temperature Pulse Rate 93 Pulse Rate [Pulse Oximeter] Respiratory Rate Blood Pressure Blood Pressure [Ri ght Upper Arm] Pulse Oximetry 97 [facility]: Result Labs Labs: Short CBC 12/11/24 Range/Units 16:29 WBC 6.64 (4.50-11.00) K/uL Hgb 11.3 L (12.0-16.0) gm/dL Hct 33.9 (33.0-51.0) % Plt Count 191 (140-440) K/uL BMP 12/11/24 16:29 Sodium 131 L Potassium 4.3 Chloride 96 Carbon Dioxide 27 BUN 14 Creatinine 0.7 Glucose 117 H Calcium 9.0 Liver Function 12/11/24 Range/Units 16:29 Total Bilirubin 0.5 (0.1-1.5) mg/dL Direct Bilirubin 0.2 (0.0-0.5) mg/dL AST 35 (12-35) U/L ALT 23 (4-35) U/L Alkaline Phosphatase 80 (40-150) U/L Albumin 4.0 (3.3-5.0) g/dL Urine 12/11/24 Range/Units 14:56 Urine Color Dark yellow (Yellow) Urine Appearance Slightly Cloudy A (Clear) Urine pH 6.5 (5.0-8.5) Ur Specific [place] 1.010 (1.000-1.030) Urine Protein 2+ A (Negative) Urine Glucose (UA) Negative (Negative) Imaging CT abdomen pelvis: Attestation: I have reviewed the pertinent imaging results. Radiologist's impression: Lung bases: Mild basilar reticulation could be scarring or atelectasis. Liver: There is a 2.4 centimeter liver cyst. There are scattered subcentimeter subcapsular lesions. See series 2 image 26, 29, and 51. Gallbladder and bile ducts: The gallbladder fundus is mildly thickened and hyperenhancing. There is some focal low density in the wall. Question fundal adenomyomatosis. No bile duct dilation. Pancreas: Normal. Spleen: Normal. Adrenal glands: Normal. Kidneys: Normal left renal size and position. Normal left renal parenchymal enhancement. There is a 9 millimeter left renal cyst. No left renal mass. There is left pelviectasis and dilatation of the peripheral and central calices. The anterior to posterior renal pelvic dimension is 3.1 centimeters. The left ureter is diffusely dilated. The left urothelium appears normal on CT. Slightly low-lying transverse right kidney. Asymmetric right perinephric stranding. Focal blurring of the corticomedullary differentiation in the right mid kidney laterally. See series 2, image 63. There is moderate to severe right pelvicaliectasis with an anterior-posterior renal pelvis dimension of 4 centimeters. The right ureter is diffusely dilated. There is right urothelial thickening and enhancement. Urinary bladder: Urinary bladder prolapse. The urinary bladder is not fully visualized within the field of view. The ureterovesicular junctions are not visualized within the field of view. The bladder is mildly thickened and hyperenhancing. There is some adjacent inflammatory stranding. Pelvis: Severe pelvic prolapse. Vessels: Mild atherosclerosis. No aortic aneurysm. Mesenteric arteries and veins are patent. Bowel: No dilated or inflamed bowel. Normal appendix. Moderate stool burden. Lymph nodes: No adenopathy. Peritoneum: No ascites or free air. Abdominal wall: No bowel containing hernia. Bones: Multilevel disc and facet degeneration. No acute or healing fractures. No focal worrisome bone lesions. IMPRESSION: 1. Cystitis of the urinary bladder and right upper urinary tract infection. Area of focal pyelonephritis in the right mid kidney. No renal abscess or perinephric collection. 2. There is pelvic prolapse with prolapse of the bladder. There is associated bilateral urinary tract dilatation/obstruction. 3. Question focal adenomyomatosis at the gallbladder fundus. Recommend nonemergent ultrasound. 4. There are a few indeterminate subcapsular liver lesions that measure less than 1 centimeter. If further imaging is clinically necessary, MR abdomen without and with IV contrast could be considered.
[2024-12-11] MEDS: PIPERACILLIN/TAZOBACTAM 3.375 GM in 0.9 % SODIUM CHLORIDE Mini-bag 100 ML IVPB (19:25)
[2024-12-11] MEDS: 0.9 % SODIUM CHLORIDE 1000 ml 1,000 ML 125 ML IV (19:26)
--- NOTE | 2024-12-11 19:33 | PC.NURSE ---
Nursing Care Hours: [id number] Pt arrived to unit on stretcher, surrounded by and 2 adult daughters. Alert and oriented, no c/o pain. SBA to bed, pt feeling weak and shaky. VSS, pulse 98 bpm. Tee patent. IV patent.
[2024-12-11] MEDS: ENOXAPARIN 40 MG/0.4 ML INJ SUBCUT (20:58)
[2024-12-11] MEDS: MELATONIN 3 MG TABLET PO (21:56)
[2024-12-12] VITALS (9 sets, daily range): BP systolic 121–147; BP diastolic 67–90; PULSE 76–91; RESP 12–20; TEMP 36.6–37.2; O2SAT 92–97
[2024-12-12] MEDS: PIPERACILLIN/TAZOBACTAM 3.375 GM in 0.9 % SODIUM CHLORIDE Mini-bag 100 ML IVPB ×4 (02:46→19:50)
[2024-12-12] MEDS: 0.9 % SODIUM CHLORIDE 1000 ml 1,000 ML 125 ML IV (04:46)
--- NOTE | 2024-12-12 04:49 | PC.NURSE ---
Shift note: Patient is pleasant, alert and oriented. Reported no pain, fever, nausea, or vomiting. However, patient endorses a feeling of weakness and has remained in bed throughout the night. There have been no other significant changes in symptoms or new complaints. She is compliant with the prescribed antibiotic regimen and has been maintaining adequate fluid intake both oral and parenteral. No signs of distress. Abdomen soft, non-tender. No costovertebral angle tenderness. Patient was shaky at the beginning of the shift but got stabilized with enough and warm blanket. Patient had adequate sleep.
[2024-12-12 06:27] LABS: Hemoglobin* 10.7 gm/dL (12.0-16.0); Mean Corpuscular HGB Conc 33 gm/dL (32-36); Mean Corpuscular Hemoglobin 34 pg (26-34); Mean Corpuscular Volume 101 fL (80-100); Platelet Count* 188 K/uL (140-440); Red Blood Count 3.18 m/uL (4.00-5.20); White Blood Count* 7.73 K/uL (4.50-11.00)
[2024-12-12 06:35] LABS: Slide Review Reflex No
[2024-12-12 06:42] LABS: Chloride* 104 mmol/L (96-114); Potassium* 3.3 mmol/L (3.6-5.1); Sodium* 132 mmol/L (135-149)
[2024-12-12 06:46] LABS: Anion Gap 6 mEq/L (7-15); Blood Urea Nitrogen* 8 mg/dL (7-30); Carbon Dioxide* 22 mmol/L (20-32); Creatinine* 0.6 mg/dL (0.5-1.5); Est. Creatinine Clearance* 37.18; Estimated Glomerular Filt Rate 92 ml/min; Glucose* 106 mg/dL (60-115)
[2024-12-12 07:06] LABS: C Reactive Protein* 14.4 mg/dL (0.5-1.0)
--- NOTE | 2024-12-12 11:13 | PM.IMPN1 ---
Assessment and Plan Assessment and plan (1) Sepsis: Problem comment: - 12/11/2024: Fever 100.4?, HR >90, urinary source No leukocytosis, lactate 0.8, CRP 14.2 Zosyn IVF Fever management BC x2 and UC pending - 12/12/2024: Much improved with IV fluids and antibiotics Status: Acute (2) Pyelonephritis: Problem comment: - 12/11/2024: CT shows cystitis of the urinary bladder and right upper urinary tract infection. Area of focal pyelonephritis in the right mid kidney. No renal abscess or perinephric collection UC from outside facility, 12/08 growing >100,000 E Coli, sensitive to nitrofurantoin, cefepime, zosyn Failed outpatient therapy with nitrofurantoin Received cefepime in ED Start Zosyn, awaiting BC x 2 and repeat UC - 12/12/2024: Continue current treatment efforts for now Status: Acute (3) Obstructive uropathy: Problem comment: - 12/11/2024: CT shows associated bilateral urinary tract dilatation/obstruction Catheter in place - 12/12/2024: Continue with urethral catheter in place for now. Called and discussed case with Dr. Anderson, Bioinformatics Computer Scientist, who will see the patient in consultation regarding treatment options for bladder prolapse Status: Acute (4) Female bladder prolapse: Problem comment: - 12/11/2024: CT shows pelvic prolapse with prolapse of the bladder. There is associated bilateral urinary tract dilatation/obstruction Chronic, patient has tried pessaries in the past but found them to be too uncomfortable ED provider discussed with COMMERCIAL BAKING TEACHER. Consult for morning - 12/12/2024: Continue with urethral catheter in place for now. Called and discussed case with Dr. Anderson, Bioinformatics Computer Scientist, who will see the patient in consultation regarding treatment options for bladder prolapse Status: Chronic (5) Hyponatremia: Problem comment: - 12/11/2024: Mild, sodium 131, recheck in a.m. following IVF - 12/12/2024: Sodium 132, continue the same Status: Acute (6) Abnormal findings on diagnostic imaging of gallbladder: Problem comment: Incidental finding, CT questions focal adenomyomatosis at the gallbladder fundus Recommend outpatient follow-up with PCP for nonemergent ultrasound Status: Acute (7) Liver lesion: Problem comment: Incidental finding, CT shows a few indeterminate subcapsular liver lesions that measure less than 1 centimeter LFTs are unremarkable Outpatient follow-up with PCP for consideration MR abdomen if necessary Status: Acute Plan 1. Reviewed impression, plans, recommendations with patient, and 2 daughters [address]. Discussed with Dr. Anderson, Bioinformatics Computer Scientist, who will see the patient in consultation 3. Answered patient's and family's questions to their satisfaction 4. Patient and daughters are agreeable with above stated plans and recommendations Total Time Spent Total Time Spent: 35 minutes Subjective Date Seen: 12/12/24 Interval history: Admission history of present illness, 12/11/2024: ?79 year old female past medical history significant for mild hypercholesterolemia, uterine/bladder prolapse is admitted to the medical floor from the ED for further management sepsis in setting of pyelonephritis. ?Patient is seen with spouse and daughters at bedside. Reports not feeling well for several days. Has had suprapubic discomfort as well as flank/rib cage pain. Increased urination and frequency. Chills without recorded fever at home. Temp in the ED is 100.4? today. Denies headache or lightheadedness specifically but has felt ?off.? Reports falling this morning when walking from the bedroom to the bathroom. Think she struck a countertop with her arm but did not hit her head and did not lose consciousness. Currently denies any pain of the extremity where she hit it does have a Band-Aid over the area. Denies chest pain or shortness of breath. Denies nausea or vomiting but has had a decrease in her appetite with decreased oral intake. Denies diarrhea. Has not had her routine bowel movements. ?Patient was seen in the [facility] on 12/08/2024. She was started on nitrofurantoin for suspected UTI. Urine culture grew out > 100,000 E coli with sensitivities to nitrofurantoin. Despite this, patient has not had any improvement, and is feeling worse. ?Nonsmoker. Drinks 1 glass of wine daily. Wishes to be full code. PCP is Dr. Cohen.? Hospital day 2, 12/12/2024: Feeling better today than yesterday. Continues to have residual discomfort suprapubically and bilateral flank, but considerably less than yesterday. Appetite is improving. No longer having fever or rigors. Tolerating increased activity. Exam Narrative: Exam Narrative: Examined patient in her hospital room. Appears comfortable and in no acute distress. Cooperative and friendly. Lungs are clear to auscultation. Chest wall excursions are full. Mild discomfort with thumping of bilateral flanks. Heart tones with regular rhythm, normal S1-S2. PMI not laterally displaced. Abdomen with active bowel sounds, soft. Subjective discomfort to palpation over suprapubic abdominal area. No rebound or guarding. Extremities without edema. Independent with transfer, station, gait. No focal motor neurologic deficits. Skin is warm, dry, intact. No icterus, jaundice, petechiae, or rashes. Const: Vital Signs, click to edit/add: Vital Signs - 24 hr 12/11/24 15:04 12/11/24 15:30 12/11/24 16:51 Temperature 100.4 F H Pulse Rate 86 Pulse Rate [Pulse Oximeter] 91 Pulse Rate [Right Pulse Oximeter] Respiratory Rate 16 Blood Pressure 162/95 H Blood Pressure [Ri ght Arm] Blood Pressure [Ri ght Upper Arm] 152/81 H Pulse Oximetry 97 94 Oxygen Delivery Me thod Room Air 12/11/24 17:00 12/11/24 18:37 12/11/24 19:23 Temperature 98.2 F 98.3 F Pulse Rate 93 Pulse Rate [Pulse Oximeter] Pulse Rate [Right Pulse Oximeter] 98 95 Respiratory Rate 20 20 Blood Pressure Blood Pressure [Ri ght Arm] 149/77 H 131/71 Blood Pressure [Ri ght Upper Arm] Pulse Oximetry 97 95 95 Oxygen Delivery Ri thod Room Air Room Air 12/11/24 22:57 12/11/24 23:00 12/12/24 02:41 Temperature 98.3 F 98 F Pulse Rate 83 Pulse Rate [Pulse Oximeter] Pulse Rate [Right Pulse Oximeter] 86 85 Respiratory Rate 20 20 Blood Pressure Blood Pressure [Ri ght Arm] 139/68 133/67 Blood Pressure [Ri ght Upper Arm] Pulse Oximetry 90 92 Oxygen Delivery Me thod Room Air Room Air 12/12/24 07:00 12/12/24 07:00 Temperature 98.7 F Pulse Rate 89 Pulse Rate [Pulse Oximeter] Pulse Rate [Right Pulse Oximeter] 81 Respiratory Rate 12 Blood Pressure Blood Pressure [Ri ght Arm] 121/90 H Blood Pressure [Ri ght Upper Arm] Pulse Oximetry 95 Oxygen Delivery Me thod Room Air Labs Labs: Laboratory Results - last 24 hr 12/11/24 12/11/24 12/11/24 14:56 16:16 16:29 WBC 6.64 RBC 3.37 L Hgb 11.3 L Hct 33.9 MCV 101 H MCH 34 MCHC 33 RDW Coeff of Richard 13.0 Plt Count 191 Neut % (Auto) 75.2 H Lymph % (Auto) 9.5 L [place] % (Auto) 14.0 H Eos % (Auto) 0.0 Baso % (Auto) 0.2 Neut # (Auto) 5.00 Lymph # (Auto) 0.60 L [place] # (Auto) 0.90 Eos # (Auto) 0.00 Baso # (Auto) 0.01 Abs Immat Gran (auto) 0.07 Imm/Tot Granulo (auto) 1.1 Sodium 131 L Potassium 4.3 Chloride 96 Carbon Dioxide 27 Anion Gap 8 BUN 14 Creatinine 0.7 Estimated Creat Clear 43.40 Estimated GFR 88 Glucose 117 H Lactate 0.8 Calcium 9.0 Total Bilirubin 0.5 Direct Bilirubin 0.2 AST 35 ALT 23 Alkaline Phosphatase 80 C-Reactive Protein 14.2 H Total Protein 6.9 Albumin 4.0 Procalcitonin 0.31 Urine Color Dark yellow Urine Appearance Slightly Cloudy A Urine pH 6.5 Ur Specific [place] 1.010 Urine Protein 2+ A Urine Glucose (UA) Negative Urine Ketones 1+ A Urine Blood 2+ A Urine Nitrite Positive A Urine Bilirubin Negative Urine Urobilinogen 0.2 Ur Leukocyte Esterase 3+ A Urine RBC 2-5 A Urine WBC 50-100 A Ur Squamous Epith Cells Few Urine Bacteria Many A POC Creatinine 0.8 12/12/24 05:50 WBC 7.73 RBC 3.18 L Hgb 10.7 L Hct 32.0 L MCV 101 H MCH 34 MCHC 33 RDW Coeff of Richard Plt Count 188 Neut % (Auto) Lymph % (Auto) [place] % (Auto) Eos % (Auto) Baso % (Auto) Neut # (Auto) Lymph # (Auto) [place] # (Auto) Eos # (Auto) Baso # (Auto) Abs Immat Gran (auto) Imm/Tot Granulo (auto) Sodium 132 L Potassium 3.3 L Chloride 104 Carbon Dioxide 22 Anion Gap 6 L BUN 8 Creatinine 0.6 Estimated Creat Clear 37.18 Estimated GFR 92 Glucose 106 Lactate Calcium 8.0 L Total Bilirubin Direct Bilirubin AST ALT Alkaline Phosphatase C-Reactive Protein 14.4 H Total Protein Albumin Procalcitonin Urine Color Urine Appearance Urine pH Ur Specific [place] Urine Protein Urine Glucose (UA) Urine Ketones Urine Blood Urine Nitrite Urine Bilirubin Urine Urobilinogen Ur Leukocyte Esterase Urine RBC Urine WBC Ur Squamous Epith Cells Urine Bacteria POC Creatinine Imaging CT scan of abdomen and pelvis: Attestation: I have reviewed the pertinent imaging results. Radiologist's impression: IMPRESSION: 1. Cystitis of the urinary bladder and right upper urinary tract infection. Area of focal pyelonephritis in the right mid kidney. No renal abscess or perinephric collection. 2. There is pelvic prolapse with prolapse of the bladder. There is associated bilateral urinary tract dilatation/obstruction. 3. Question focal adenomyomatosis at the gallbladder fundus. Recommend nonemergent ultrasound. 4. There are a few indeterminate subcapsular liver lesions that measure less than 1 centimeter. If further imaging is clinically necessary, MR abdomen without and with IV contrast could be considered.
--- NOTE | 2024-12-12 14:53 | PC.NURSE ---
I have paged Dr. Anderson to update her that the pessary did not stay in place and that she voided and bladder scanned patient and there were only 16 cc on the scan.
--- NOTE | 2024-12-12 18:06 | PM.GYNCN1 ---
ENVIRONMENTAL REMEDIATION SPECIALIST - CN: HPI Data of Consult Date Seen: 12/12/24 Patient: [facility] Patient Consult date: 12/12/24 Requesting Physician: Rashmi Cox MD Primary Care Provider: Erna Cohen MD Consult Narrative Narrative: Shane Cat is a 79 year old female who is seen by kind request of the hospitalist service for evaluation of urinary retention in the setting severe uterovaginal prolapse. She is currently hospitalized for urosepsis. She reports prolapse of about 8 years duration. She previously saw Dr. Cohen and did try a pessary for short duration of time, but she found this painful and discontinued use on her own. She has had persistent prolapse symptoms since that time, inclusive of vaginal bulge urinary urgency. She has occasional difficulty emptying her rectum. She reports a few urinary tract infections over the years. This is her 1st episode of pyelonephritis. She was seen in the [facility] on 12/08/2024. She was started on nitrofurantoin for suspected UTI. Urine culture grew out > 100,000 E coli with sensitivities to nitrofurantoin. Despite this, her symptoms worsened. Obstetric and gynecologic history: Menopause in her early 50s She has had no bleeding since. No history of abnormal Pap No history of pelvic infections She is para 3, with 3 vaginal births. She had forceps assistance with 1 of these. She has no pertinent past medical history. She rarely goes to the doctor. She has never had surgery. Social History: She stays active gardening and cleaning. She lives in [place] near [place]. [place]. She lives with her . cc:: CC: Rashmi Cox MD Review of Systems Status of ROS: Reports: 6 or more systems reviewed and unremarkable except as noted in History and below PFSH PFSH Social History What is your current living situation?: I presently have a place to live Problems where you live: no known problems Problems where you live details: na In the past 12 months, utilities in danger of being shut off: no In past 12 months, lack of transportation kept you from medical appts, meetings, work, or getting things needed for daily living: no In the past 12 mos, have been you worried that your food would run out before you had money to buy more?: never true In the past 12 mos, the food you bought just didn't last and you didn't have money to buy more?: never true Highest level of school completed/degree received: 11th grade Smoking Status: Never smoker How often do you have a drink containing alcohol: 4 or more times a week Alcohol type: wine How many standard drinks containing alcohol do you have on a typical day: 1 or 2 AUDIT-C Alcohol total score: 4 Non-prescribed substance use: denies use Caffeine: No How often does anyone, including family, friends and others, physically hurt you: unable to answer How often does anyone, including family, friends and others, insult or talk down to you: unable to answer How often does anyone, including family, friends and others, threaten you with harm: unable to answer How often does anyone, including family, friends and others, scream or curse at you: unable to answer service: No Meds Home Medications and Allergies Home Medications ?Medication ?Instructions ?Recorded ?Confirmed ?Type nitrofurantoin 1 cap PO BID 12/11/24 12/11/24 History monohydrate/macrocrystals 100 mg capsule Allergies Allergy/AdvReac Type Severity Reaction Status Date / Time No Known Drug Allergies Allergy Verified 12/11/24 17:50 ENVIRONMENTAL REMEDIATION SPECIALIST - Exam Physical Exam: Vital signs: Temp Pulse Resp BP Pulse Ox O2 Del Method 98.4 F 91 14 130/67 95 Room Air 12/12/24 14:35 12/12/24 15:00 12/12/24 14:35 12/12/24 14:35 12/12/24 14:35 12/12/24 14:35 Narrative: Physical exam: General: No acute distress Psych: Alert and oriented x3, full affect HEENT: Normocephalic, atraumatic Pelvic exam: Complete uterine prolapse noted prior to initiation of the exam. The cervix is not immediately obvious; there is a pinpoint opening in the most advanced portion of the prolapse that leaks a small amount of clear fluid. Palpation of the prolapse does reveal what seems to be of cervix beneath this. The vaginal epithelium is quite thickened. Tee catheter is in place and the urethral orifice appears irritated. Mons normal, clitoris normal. Labia minora and majora normal in appearance bilaterally. Perineum and anus normal appearance. POPQ performed with measurements as follows: tvl = 9 C = +7 D = [ ] Aa = +3 Ba = +7 Ap = -3 Bp = -3 gh = 4 pb = 2.5 ENVIRONMENTAL REMEDIATION SPECIALIST - Results Labs Labs: Short CBC 12/12/24 Range/Units 05:50 WBC 7.73 (4.50-11.00) K/uL Hgb 10.7 L (12.0-16.0) gm/dL Hct 32.0 L (33.0-51.0) % Plt Count 188 (140-440) K/uL BMP 12/12/24 05:50 Sodium 132 L Potassium 3.3 L Chloride 104 Carbon Dioxide 22 BUN 8 Creatinine 0.6 Glucose 106 Calcium 8.0 L Labs at admission were notable for white blood cell count of 6.64, hemoglobin 11.3. Her creatinine was 0.7 at admission, 0.6 this morning. CRP is elevated to 14.4 this morning. Urinalysis showed pyuria. Strangely, urine culture shows less than 10,000 colonies per mL of Gram-negative rods. Blood culture preliminary results are both negative. Imaging CT Chest/Ab/Pelvis: Radiologist's impression: CT of abdomen and pelvis: Left pelviectasis and dilation of the peripheral and central calices. Left ureter diffusely dilated. Right kidney is slightly low lying/transverse. Asymmetric right perinephric stranding. Moderate to severe right pelvocaliectasis. Right ureter diffusely dilated. Urinary bladder prolapse is noted. Bladder mildly thickened and hyperenhancing with some adjacent inflammatory stranding. Severe pelvic as mentioned with no mention of the uterus itself. IMPRESSION: 1. Cystitis of the urinary bladder and right upper urinary tract infection. Area of focal pyelonephritis in the right mid kidney. No renal abscess or perinephric collection. 2. There is pelvic prolapse with prolapse of the bladder. There is associated bilateral urinary tract dilatation/obstruction. 3. Question focal adenomyomatosis at the gallbladder fundus. Recommend nonemergent ultrasound. 4. There are a few indeterminate subcapsular liver lesions that measure less than 1 centimeter. If further imaging is clinically necessary, MR abdomen without and with IV contrast could be considered. Assessment and Plan Assessment and plan (1) Uterovaginal prolapse: Problem comment: Stage IV, leading to obstructive uropathy Status: Acute (2) Obstructive uropathy: Problem comment: - 12/11/2024: CT shows associated bilateral urinary tract dilatation/obstruction Catheter in place - 12/12/2024: Continue with urethral catheter in place for now. Called and discussed case with Dr. Anderson, Remittance Clerk, who will see the patient in consultation regarding treatment options for bladder prolapse Status: Acute (3) Pyelonephritis: Problem comment: - 12/11/2024: CT shows cystitis of the urinary bladder and right upper urinary tract infection. Area of focal pyelonephritis in the right mid kidney. No renal abscess or perinephric collection UC from outside facility, 12/08 growing >100,000 E Coli, sensitive to nitrofurantoin, cefepime, zosyn Failed outpatient therapy with nitrofurantoin Received cefepime in ED Start Zosyn, awaiting BC x 2 and repeat UC - 12/12/2024: Continue current treatment efforts for now Status: Acute Plan After a day of multiple attempts, as described in my procedure note, she has been fitted for a 3 in, 76 mm Gellhorn pessary. This is currently in place. She should call my office with any concerns regarding her pessary after her discharge from the hospital. She is to leave this in place until our visit. She should keep her to spare pessaries in case we need to change the size and shape of what she is using. I would like to see her 2 weeks after her discharge. In the interim, I would like her to begin using low-dose vaginal estrogen cream. I did place an order for Premarin cream to be used while inpatient. This will help with prevention of urinary tract infection and will help to prevent vaginal erosions from persistent pessary use. Otherwise, I defer to the hospitalist's regarding her disposition. Dr. Gay will visit her tomorrow to assure that she is doing well prior to discharge. Procedures Additional Procedures Additional Procedure Details: PESSARY FITTING First, a model 2-3/4 inch (70mm) Gellhorn pessary was lubricated and inserted. Patient performed Valsalva maneuvers in attempt to dislodge the pessary, but this stayed in appropriate location. She reported no discomfort with this pessary in place. This pessary was removed with gentle traction. Next, a model 3-1/4 inch (83 mm) ring pessary with support was lubricated and inserted. This was difficult to place above the pubic symphysis anteriorly, due to its large size, and caused discomfort to the patient. This was removed. I reviewed the pessary is we have in stores here; the ideal size of Gellhorn pessary was not initially present. Thus, I initially selected a permanent 2 3/4 inch (70 mm) incontinence ring pessary which I had immediately available. Initially, she performed Valsalva maneuvers in an attempt to dislodge the pessary, but this stayed in appropriate location. Thereafter, RN attempted to fill her bladder with 300 mL of saline to perform a voiding trial, but she actually had an apparent bladder spasm and leaking around the catheter. Thus, the catheter was removed and the voiding trial abandoned. She subsequently had strong urge to void, went to the bathroom to urinate, and this pessary fell out. Next, I brought a permanent 3 in (76 mm) Donut pessary to her room. This was lubricated and inserted without difficulty. Unfortunately, after her 1st attempt at void, this also fell out. Next, I re-attempted insertion of permanent 3-1/4 inch (83 mm) ring pessary with support in her room. The pessary was cleansed, lubricated and inserted. While this did stay in place, she noted that it moved downwards during bowel movement, and she had to push it back up. I was to obtain a permanent 3 in (76 mm) Gellhorn pessary with the help of Dr. Cohen at [facility]. The ring pessary was removed, though it did seem to be in appropriate location on my exam. She is to keep this for potential later use, along with a spare 2-3/4 inch Gellhorn pessary. Finally, the permanent 3 in Gellhorn pessary was cleansed, lubricated and inserted. Patient tolerated this quite well.
--- NOTE | 2024-12-12 18:33 | PC.NURSE ---
Patients catheter removed in clinic and pessary placed. Patients first two Pessaries fell out while voiding.
--- NOTE | 2024-12-12 18:39 | PC.NURSE ---
Patients catheter removed in clinic and Pessary placed. Patient bladder scanned after void for 120mls. Patients Pessary remains in place, PIV patent, VSS, A&Ox3. MD received culture and sensitivity.
[2024-12-12] MEDS: ENOXAPARIN 40 MG/0.4 ML INJ SUBCUT (19:47)
[2024-12-12] MEDS: SODIUM CHLORIDE 0.9 % (FLUSH) 10 ML SYRINGE 5 ML IVF (19:50)
[2024-12-12] MEDS: MELATONIN 3 MG TABLET PO (20:57)
[2024-12-12] MEDS: ESTROGENS, CONJUGATED VAGINAL 0.625 MG/G CREAM VAGINAL (21:51)
[2024-12-13] MEDS: PIPERACILLIN/TAZOBACTAM 3.375 GM in 0.9 % SODIUM CHLORIDE Mini-bag 100 ML IVPB ×2 (02:14→07:46)
[2024-12-13 02:41] VITALS: BP 144/73; PULSE 78; RESP 18; TEMP 37.2; O2SAT 91
--- NOTE | 2024-12-13 06:21 | PC.NURSE ---
End of shift report : VS WNL. Afebrile. AxOx4. Denies pain. Pessary in place. Ambulates ind. in room. Tolerating regular diet. Call light within reach.?
[2024-12-13 06:47] LABS: Hematocrit 31.3 % (33.0-51.0); Hemoglobin* 10.5 gm/dL (12.0-16.0); Mean Corpuscular HGB Conc 34 gm/dL (32-36); Mean Corpuscular Hemoglobin 34 pg (26-34); Mean Corpuscular Volume 100 fL (80-100); Platelet Count* 217 K/uL (140-440); Red Blood Count 3.12 m/uL (4.00-5.20); White Blood Count* 8.46 K/uL (4.50-11.00)
[2024-12-13 06:50] LABS: Slide Review Reflex No
[2024-12-13 07:00] VITALS: BP 137/75; PULSE 88; RESP 16; TEMP 37.2; O2SAT 95
[2024-12-13 07:37] LABS: Anion Gap 8 mEq/L (7-15); Blood Urea Nitrogen* 13 mg/dL (7-30); Carbon Dioxide* 23 mmol/L (20-32); Chloride* 105 mmol/L (96-114); Potassium* 3.3 mmol/L (3.6-5.1); Sodium* 136 mmol/L (135-149)
[2024-12-13 07:38] LABS: C Reactive Protein* 15.2 mg/dL (0.5-1.0); Calcium* 9.1 mg/dL (8.4-10.6); Creatinine* 0.6 mg/dL (0.5-1.5); Estimated Glomerular Filt Rate 92 ml/min; Glucose* 112 mg/dL (60-115)
[2024-12-13] MEDS: SODIUM CHLORIDE 0.9 % (FLUSH) 10 ML SYRINGE 5 ML IVF (07:48)
--- NOTE | 2024-12-13 09:54 | PM.DS1 ---
DS: Providers Provider Date Seen: 12/13/24 Date of admission: 12/11/24 18:32 Primary care physician: Erna Cohen MD [facility] Cons[facility]: 12/12/24 06:00 Consult to Physician [CONS] Urgent Comment: [employer] Consulting Provider: Surgeons, [facility] OR Has provider been notified: No Attending Physician on discharge: [facility] Date of Discharge: 12/13/24 DS: Diagnosis Discharge Diagnosis (1) Sepsis: Status: Resolved Problem details: - 12/11/2024: Fever 100.4?, HR >90, urinary source No leukocytosis, lactate 0.8, CRP 14.2 Zosyn IVF Fever management BC x2 and UC pending - 12/12/2024: Much improved with IV fluids and antibiotics Sepsis resolved prior to discharge. BC x2 showing no growth after 24 hours. Repeat UC negative. Initial urine culture grew > 100,000 E coli, sensitive to fluoroquinolones. Patient is discharged on ciprofloxacin. (2) Pyelonephritis: Status: Acute Problem details: - 12/11/2024: CT shows cystitis of the urinary bladder and right upper urinary tract infection. Area of focal pyelonephritis in the right mid kidney. No renal abscess or perinephric collection UC from outside facility, 12/08 growing >100,000 E Coli, sensitive to nitrofurantoin, cefepime, zosyn Failed outpatient therapy with nitrofurantoin Received cefepime in ED Start Zosyn, awaiting BC x 2 and repeat UC - 12/12/2024: Continue current treatment efforts for now Repeat UC negative. Initial urine culture grew > 100,000 E coli, sensitive to fluoroquinolones. BC x2 showing no growth after 24 hours. Patient is discharged on ciprofloxacin. Outpatient follow-up with PCP. (3) Obstructive uropathy: Status: Acute Problem details: - 12/11/2024: CT shows associated bilateral urinary tract dilatation/obstruction Catheter in place - 12/12/2024: Continue with urethral catheter in place for now. Called and discussed case with Dr. Anderson, [employer] Chief Experience Officer, who will see the patient in consultation regarding treatment options for bladder prolapse Tee catheter removed prior to discharge. Pessary in place. Outpatient follow-up with Dr. Anderson, Gynecology, in 2 weeks. (4) Female bladder prolapse: Status: Chronic Problem details: - 12/11/2024: CT shows pelvic prolapse with prolapse of the bladder. There is associated bilateral urinary tract dilatation/obstruction Chronic, patient has tried pessaries in the past but found them to be too uncomfortable ED provider discussed with [employer]ER. Consult for morning - 12/12/2024: Continue with urethral catheter in place for now. Called and discussed case with Dr. Anderson, [employer] Chief Experience Officer, who will see the patient in consultation regarding treatment options for bladder prolapse Tee catheter removed prior to discharge. Pessary in place. Outpatient follow-up with Dr. Anderson, Gynecology, in 2 weeks. (5) Uterovaginal prolapse: Status: Acute Problem details: Stage IV, leading to obstructive uropathy Pessary in place. Prescribed Premarin cream to be used nightly x2 weeks or until follow-up with gynecology. Outpatient follow-up with Gynecology in 2 weeks. (6) Hyponatremia: Status: Resolved Problem details: - 12/11/2024: Mild, sodium 131, recheck in a.m. following IVF - 12/12/2024: Sodium 132, continue the same Resolved prior to discharge (7) Abnormal findings on diagnostic imaging of gallbladder: Status: Acute Problem details: Incidental finding, CT questions focal adenomyomatosis at the gallbladder fundus Recommend outpatient follow-up with PCP for nonemergent ultrasound (8) Liver lesion: Status: Acute Problem details: Incidental finding, CT shows a few indeterminate subcapsular liver lesions that measure less than 1 centimeter LFTs are unremarkable Outpatient follow-up with PCP for consideration MR abdomen if necessary DS: Summary Hospital Course Hospital Course: Course of care and details as noted above. Patient is discharged to complete course of ciprofloxacin for acute pyelonephritis in setting of obstructive uropathy. Pessary has been placed in patient is started on Premarin vaginal cream. Outpatient follow-up with Gynecology in 2 weeks. Status at Discharge Functional status at discharge: independent ambulation Overall status at discharge: patient is back to baseline Time Spent with Patient Time attestation: Total time spent providing and/or coordinating discharge services: Time spent: Greater than 30 minutes Exam Narrative: Exam Narrative: PHYSICAL EXAM General: Pleasant, conversant, NAD Cardiovascular: RRR Pulmonary: No dyspnea Neurological: Alert, answering questions appropriately Skin: Warm, dry. Const: Vital Signs, click to edit/add: Vital Signs - 24 hr 12/12/24 11:00 12/12/24 14:35 12/12/24 15:00 Temperature 98.2 F 98.4 F Pulse Rate 91 Pulse Rate [Right Pulse Oximeter] 76 85 Respiratory Rate 14 14 Blood Pressure [Ri ght Arm] 132/71 130/67 Pulse Oximetry 97 95 Oxygen Delivery Me thod Room Air Room Air 12/12/24 19:42 12/12/24 20:24 12/12/24 22:00 Temperature 98.5 F 98.9 F Pulse Rate Pulse Rate [Right Pulse Oximeter] 85 85 78 Respiratory Rate 16 16 16 Blood Pressure [Ri ght Arm] 147/80 H 140/78 H Pulse Oximetry 94 94 Oxygen Delivery Me thod Room Air Room Air 12/12/24 22:39 12/13/24 02:41 12/13/24 07:00 Temperature 98.9 F Pulse Rate 76 Pulse Rate [Right Pulse Oximeter] 78 88 Respiratory Rate 18 16 Blood Pressure [Ri ght Arm] 144/73 H Pulse Oximetry 91 Oxygen Delivery Me thod Room Air 12/13/24 07:00 Temperature 98.9 F Pulse Rate Pulse Rate [Right Pulse Oximeter] 88 Respiratory Rate 16 Blood Pressure [Ri ght Arm] 137/75 Pulse Oximetry 95 Oxygen Delivery Me thod Room Air DS: Data Data Completed and Pending Labs on day of discharge: Labs from last 24 hours 12/13/24 06:01 WBC 8.46 RBC 3.12 L Hgb 10.5 L Hct 31.3 L MCV 100 MCH 34 MCHC 34 Plt Count 217 Sodium 136 Potassium 3.3 L Chloride 105 Carbon Dioxide 23 Anion Gap 8 BUN 13 Creatinine 0.6 Estimated Creat Clear 37.70 Estimated GFR 92 Glucose 112 Calcium 9.1 C-Reactive Protein 15.2 H Preliminary micro results at discharge 12/11/24 16:29 Blood Culture - Preliminary Blood NO GROWTH AFTER 24 HOURS 12/11/24 16:25 Blood Culture - Preliminary Blood NO GROWTH AFTER [address] abdomen pelvis: Attestation: I have reviewed the pertinent imaging results. Radiologist's impression: Lung bases: Mild basilar reticulation could be scarring or atelectasis. Liver: There is a 2.4 centimeter liver cyst. There are scattered subcentimeter subcapsular lesions. See series 2 image 26, 29, and 51. Gallbladder and bile ducts: The gallbladder fundus is mildly thickened and hyperenhancing. There is some focal low density in the wall. Question fundal adenomyomatosis. No bile duct dilation. Pancreas: Normal. Spleen: Normal. Adrenal glands: Normal. Kidneys: Normal left renal size and position. Normal left renal parenchymal enhancement. There is a 9 millimeter left renal cyst. No left renal mass. There is left pelviectasis and dilatation of the peripheral and central calices. The anterior to posterior renal pelvic dimension is 3.1 centimeters. The left ureter is diffusely dilated. The left urothelium appears normal on CT. Slightly low-lying transverse right kidney. Asymmetric right perinephric stranding. Focal blurring of the corticomedullary differentiation in the right mid kidney laterally. See series 2, image 63. There is moderate to severe right pelvicaliectasis with an anterior-posterior renal pelvis dimension of 4 centimeters. The right ureter is diffusely dilated. There is right urothelial thickening and enhancement. Urinary bladder: Urinary bladder prolapse. The urinary bladder is not fully visualized within the field of view. The ureterovesicular junctions are not visualized within the field of view. The bladder is mildly thickened and hyperenhancing. There is some adjacent inflammatory stranding. Pelvis: Severe pelvic prolapse. Vessels: Mild atherosclerosis. No aortic aneurysm. Mesenteric arteries and veins are patent. Bowel: No dilated or inflamed bowel. Normal appendix. Moderate stool burden. Lymph nodes: No adenopathy. Peritoneum: No ascites or free air. Abdominal wall: No bowel containing hernia. Bones: Multilevel disc and facet degeneration. No acute or healing fractures. No focal worrisome bone lesions. IMPRESSION: 1. Cystitis of the urinary bladder and right upper urinary tract infection. Area of focal pyelonephritis in the right mid kidney. No renal abscess or perinephric collection. 2. There is pelvic prolapse with prolapse of the bladder. There is associated bilateral urinary tract dilatation/obstruction. 3. Question focal adenomyomatosis at the gallbladder fundus. Recommend nonemergent ultrasound. 4. There are a few indeterminate subcapsular liver lesions that measure less than 1 centimeter. If further imaging is clinically necessary, MR abdomen without and with IV contrast could be considered. Discharge Plan Discharge Disposition: Home, Self-Care Date of Admission: 12/11/24 18:32 Attending Provider on Discharge: Leah Eid Primary Care Provider: Erna Cohen Condition: Improved Anticipated Discharge Date/Time: 12/13/24 09:42 Discharge Medications: New ciprofloxacin HCl [Cipro] 500 mg tablet 500 mg PO BID Qty: 14 0RF Discontinued nitrofurantoin monohyd/m-cryst 100 mg capsule 1 cap PO BID Discharge Orders: Discharge Order (Routine); Ordered 12/13/24 Ordered By: Leah Eid Patient Education: Ciprofloxacin (By mouth), Kidney Infection (GEN) Additional Instructions: Premarin cream - apply 0.5g to vaginal tissue nightly for 2 weeks (or until follow up with Global Chief Experience Officer) to help prevent urinary tract infection and vaginal erosions from persistent pessary use Activity Level: No Restrictions Discharge Diet: Regular Follow Up Appointments: Greta Anderson MD [Staff Physician] - 12/26/24 11:00 am [facility] Erna Cohen MD [Primary Care Provider] - 12/22/24 9:05 am ([facility] for post hospital follow-up.) Forms: [employer] Info Instructions
--- NOTE | 2024-12-13 11:29 | PC.NURSE ---
Discharge: Patient VSS, RA, tolerating a reg. diet. Denies pain N/V/SOB. IV removed intact. Discharged today at 1033 to home accompanied by spouse. Discharge instructions signed and patient verbalized understanding of discharge instructions.
== END 2024-12-13 10:33 | disposition home or self-care (01) | DRG 872 ==
LOC: ED 17:54 → MEDSURG 18:15
PROVIDERS: Admitting Provider Physician Assistant; Emergency Provider Emergency Medicine; PCP Family Medicine; Visit Provider Family Medicine
DX: A41.89 Other specified sepsis (principal); Z16.19 Resistance to other specified beta lactam antibiotics; E87.1 Hypo-osmolality and hyponatremia; N10 Acute pyelonephritis; K76.9 Liver disease, unspecified; R93.3 Abnormal findings on diagnostic imaging of other parts of digestive tract; N13.9 Obstructive and reflux uropathy, unspecified; N81.4 Uterovaginal prolapse, unspecified; B96.89 Other specified bacterial agents as the cause of diseases classified elsewhere
CPT/HCPCS: 51702; 36415; 51798; 74177; 80048; 80076; 81001; 82565; 83605; 84145; 85025; 85027; 86140; 87040; 87086; 93005; 99284; 99285; A9270; J0692; J1650; J2543; J7030; Q9967